=== PATIENT | male | born 1945 | race Two or more races ===

== ENCOUNTER → 2018-04-09 | Outpatient (CLI) | payer OTHER ==
[~2018-04-09] MED LIST: ABATINEX680 MG; AVAPRO150 MG PO; CEFADROXIL500 MG PO; CHOLESTYRAMINE P4 GM; CHOLESTYRAMINE R5 GM; CLEOCIN HCL300 MG PO; CLONAZEPAM0.5 M1; COZAAR50 MG; DEPAKOTE ER500 MG; FINASTERIDE1 MG; GAS RELIEF 8080 MG; GAS RELIEF80 MG; INTESTINEX1 CA1; MECLIZINE HCL25 MG; METOPROLOL SUCC25 MG PO; NABUMETONE500 MG PO; PERCOCET 5/3251 TAB PO; PROSCAR5 MG; PROSCAR5 MG PO; PROTONIX40 MG
== END | disposition home or self-care (01) ==
LOC: NUCLEAR 12:51
DX: I67.89 Other cerebrovascular disease (principal); Z86.73 Personal history of transient ischemic attack (TIA), and cerebral infarction without residual deficits

== ENCOUNTER 2018-09-25 13:39 | Emergency (ER) | payer OTHER ==
[~2018-09-25] VITALS: Ht 162.6 cm; Wt 87.1 kg
[2018-09-25] MEDS ORDERED: ASA81 MG (13:57)
[2018-09-25] MEDS ORDERED: DEPAKOTE ER500 MG (13:57)
[2018-09-25] MEDS ORDERED: AVALIDE 150MG (13:59)
[2018-09-25] MEDS ORDERED: DEPO-MEDRO20 MG/1 ML (13:59)
== END 2018-09-25 19:40 | disposition home or self-care (01) ==
LOC: ER 13:39 → EDBD 13:44 → ER 13:44
DX: J45.998 Other asthma (principal)

== ENCOUNTER → 2018-11-18 | Outpatient (CLI) | payer OTHER ==
[~2018-11-18] MED LIST changes: +ASA81 MG; +AVALIDE 150MG; +DEPO-MEDRO20 MG/1 ML
== END | disposition home or self-care (01) ==
LOC: NUCLEAR 10:00
DX: I20.9 Angina pectoris, unspecified (principal)
CPT/HCPCS: 78452; 93017; A9500

== ENCOUNTER → 2019-09-05 | Outpatient (CLI) | payer OTHER | END | disposition home or self-care (01) | LOC: RAD 09:18 | DX: I10 Essential (primary) hypertension (principal) ==

== ENCOUNTER 2019-09-21 10:24 | Emergency (ER) | payer OTHER ==
[~2019-09-21] VITALS: Ht 162.6 cm; Wt 87.1 kg
== END 2019-09-21 22:07 | disposition home or self-care (01) ==
LOC: ER 10:24 → CPU-OBS 12:07 → ER 22:07
DX: R07.89 Other chest pain (principal); R42 Dizziness and giddiness

== ENCOUNTER 2019-11-29 08:34 | Outpatient (CLI) | payer OTHER | END 2019-11-29 10:44 | disposition home or self-care (01) | LOC: NUCLEAR 08:34 | DX: I73.9 Peripheral vascular disease, unspecified (principal) ==

== ENCOUNTER 2019-11-30 08:59 | Outpatient (CLI) | payer OTHER | END 2019-11-30 10:33 | disposition home or self-care (01) | LOC: NUCLEAR 08:59 | DX: I87.2 Venous insufficiency (chronic) (peripheral) (principal) ==

== ENCOUNTER 2020-07-20 13:50 | Outpatient (CLI) | payer OTHER | END 2020-07-20 13:54 | disposition home or self-care (01) | LOC: RAD 13:50 | PROVIDERS: ATTEND Internal Medicine Cardiovascular Disease | DX: J84.89 Other specified interstitial pulmonary diseases (principal); I10 Essential (primary) hypertension ==

== ENCOUNTER → 2021-04-11 | Emergency (ER) | payer OTHER ==
[~2021-04-11] VITALS: Ht 162.6 cm; Wt 86.2 kg
[~2021-04-11] MED LIST changes: +AVAPRO300 MG PO
== END | disposition designated cancer center or children's hospital (05) ==
LOC: ER 10:58 → CPU-OBS 12:52
DX: I21.29 ST elevation (STEMI) myocardial infarction involving other sites (principal); I10 Essential (primary) hypertension; R07.89 Other chest pain; Z03.818 Encounter for observation for suspected exposure to other biological agents ruled out

== ENCOUNTER 2022-10-06 08:47 | Outpatient (CLI) | payer OTHER | END 2022-10-06 08:55 | disposition home or self-care (01) | LOC: TOM 08:47 | PROVIDERS: ATTEND Internal Medicine Gastroenterology | DX: R10.9 Unspecified abdominal pain (principal) ==

== ENCOUNTER → 2023-03-20 | Outpatient (CLI) | payer OTHER | END | disposition home or self-care (01) | LOC: TOM 07:41 | PROVIDERS: ATTEND Internal Medicine Gastroenterology | DX: K52.89 Other specified noninfective gastroenteritis and colitis (principal) ==

== ENCOUNTER 2023-10-05 13:42 | Outpatient (CLI) | payer OTHER | END 2023-10-05 13:45 | disposition home or self-care (01) | LOC: RAD 13:42 | PROVIDERS: ATTEND Internal Medicine Cardiovascular Disease | DX: I42.8 Other cardiomyopathies (principal) ==

== ENCOUNTER 2024-04-15 07:41 | Outpatient (CLI) | payer OTHER | END 2024-04-15 07:46 | disposition home or self-care (01) | LOC: SONOGRAMA 07:41 | PROVIDERS: ATTEND Internal Medicine Cardiovascular Disease | DX: R10.9 Unspecified abdominal pain (principal) ==

== ENCOUNTER 2024-04-26 10:11 | Outpatient (CLI) | payer OTHER | END 2024-04-26 10:18 | disposition home or self-care (01) | LOC: RAD 10:11 | PROVIDERS: ATTEND Internal Medicine Cardiovascular Disease | DX: M12.9 Arthropathy, unspecified (principal) ==

== ENCOUNTER 2024-04-27 08:17 | Outpatient (CLI) | payer OTHER | END 2024-04-27 08:24 | disposition home or self-care (01) | LOC: SONOGRAMA 08:17 | PROVIDERS: ATTEND Internal Medicine Cardiovascular Disease | DX: M12.9 Arthropathy, unspecified (principal) ==

== ENCOUNTER 2024-09-19 12:11 | Outpatient (CLI) | payer OTHER | END 2024-09-19 12:12 | disposition home or self-care (01) | LOC: RAD 12:11 | PROVIDERS: ATTEND Internal Medicine Cardiovascular Disease | DX: I10 Essential (primary) hypertension (principal); I42.9 Cardiomyopathy, unspecified ==

== ENCOUNTER 2025-04-17 16:28 | Outpatient (CLI) | payer OTHER | END 2025-04-17 16:33 | disposition home or self-care (01) | LOC: RAD 16:28 | PROVIDERS: ATTEND Internal Medicine Cardiovascular Disease | DX: I10 Essential (primary) hypertension (principal); I42.9 Cardiomyopathy, unspecified ==

== ENCOUNTER 2025-06-16 10:38 | Outpatient (CLI) | payer OTHER | END 2025-06-16 10:41 | disposition home or self-care (01) | LOC: TOM 10:38 | PROVIDERS: ATTEND Internal Medicine Cardiovascular Disease | DX: R51.9 Headache, unspecified (principal) ==